=== PATIENT | female | born 1930 | race Hispanic/Latino ===

== ENCOUNTER 2018-02-16 14:06 | Inpatient (IN) | payer OTHER, MEDICARE ==
[2018-02-16 15:29] LABS: APPEARANCE,URINE Cloudy (CLEAR); BILIRUBIN,URINE Small (NEGATIVE); COLOR,URINE Dark Yellow (YELLOW); GLUCOSE, URINE (UA) Negative (NEGATIVE); KETONES,URINE Trace mg/dL (NEGATIVE); LEUKOCYTE ESTERASE ,URINE Moderate (NEGATIVE); NITRATE,URINE Negative (NEGATIVE); OCCULT BLOOD,URINE Small (NEGATIVE); PROTEIN,URINE POS 1+ (NEGATIVE)
[2018-02-16] MEDS ORDERED: SODIUM CHLORIDE 0.9% 1000ML 1,000 ML IV ONE ×2 (15:31→18:21)
[2018-02-16] MEDS ORDERED: CEFTRIAXONE SODIUM 2 GM VIAL ONE (15:32)
[2018-02-16] MEDS ORDERED: IPRATROPIUM/ALBUTEROL SULFATE 3 ML SOLUTION IH ONE (15:35)
[2018-02-16 15:37] LABS: BASOPHILS % (AUTO) 0.4 % (0.0-5.0); EOSINOPHILS % (AUTO) 0.2 % (0.0-8.0); HEMATOCRIT 44.9 % (36-48); MEAN CORPUSCULAR HEMOGLOBIN 31.6 pg (27.0-33.0); MEAN CORPUSCULAR HGB CONC 33.2 g/dL (32.0-36.0); MEAN CORPUSCULAR VOLUME 95.3 fL (79-99); MONOCYTES % (AUTO) 7.2 % (3.0-13.0); NEUTROPHILS % (AUTO) 64.2 % (40.0-77.0); NUCLEATED RED BLOOD CELLS 0.1 % (0.0-0.19); PLATELET COUNT (AUTO) 108 K/uL (130-400); RED CELL DISTRIBUTION WIDTH 14.9 % (11.0-15.5); WHITE BLOOD COUNT (AUTO) 2.4 K/uL (4.8-10.8)
[2018-02-16 15:42] LABS: BACTERIA,URINE Moderate /HPF (None Seen); RBC,URINE 0-1 /HPF (0-1); RENAL EPITHELIAL CELLS,URINE Rare /HPF (None Seen); TRANSITIONAL EPI CELLS,URINE Few /HPF (None Seen)
[2018-02-16 15:52] LABS: INR 0.93 (0.85-1.15); PARTIAL THROMBOPLASTIN TIME 31.3 SEC (26.3-35.5); PROTHROMBIN TIME 9.8 SEC (9.6-11.6)
[2018-02-16 16:01] LABS: LYMPHOCYTES % (MANUAL) 26 % (22-44); MONOCYTES % (MANUAL) 8 % (2-9); REACTIVE LYMPHOCYTES 4 % (0-0); SEGMENTED NEUTROPHILS % 62 % (40-70)
[2018-02-16 16:02] LABS: PLATELET MORPHOLOGY COMMENT ADEQUATE
[2018-02-16 16:10] LABS: CARBON DIOXIDE 27 mmol/L (21-32); CHLORIDE 105 mmol/L (101-111); CREATININE 1.3 mg/dL (0.5-1.5); GLOMERULAR FILTR. RATE CALC 41 mL/min (>60); GLUCOSE,RANDOM 97 mg/dL (70-105); POTASSIUM 3.9 mmol/L (3.5-5.1); SODIUM SERUM 139 mmol/L (136-145); UREA NITROGEN, BLOOD 18 mg/dL (7-18)
[2018-02-16 16:44] LABS: ALANINE AMINOTRANSFERASE 22 U/L (12-78); ALBUMIN 3.1 g/dL (3.5-5.0); ASPARTATE AMINOTRANSFERASE 36 U/L (10-37); BILIRUBIN,TOTAL 0.4 mg/dL (0.2-1.0); CREATINE KINASE MB 1.7 ng/mL (0.5-3.6); CREATINE KINASE, TOTAL 235 U/L (21-232); MYOGLOBIN 314 ng/mL (10-92); TOTAL PROTEIN, SERUM 6.4 g/dL (6.0-8.3); TROPONIN I < 0.04 ng/mL (0.00-0.06)
[2018-02-16] MEDS: OSELTAMIVIR PHOSPHATE 75 MG CAP PO SCH (21:00)
[2018-02-16] MEDS ORDERED: SODIUM CHLORIDE 0.9% 1000ML 1,000 ML IV SCH (21:15)
[2018-02-16] MEDS: IPRATROPIUM/ALBUTEROL SULFATE 3 ML SOLUTION IH SCH (21:41)
[2018-02-16] MEDS ORDERED: OSELTAMIVIR PHOSPHATE 75 MG CAP ONE (21:46)
[2018-02-17] VITALS: BP 125/64
[2018-02-17] MEDS: ENOXAPARIN SODIUM 30 MG/0.3 ML SQ SCH ×3 (00:55→20:08)
[2018-02-17] MEDS: IPRATROPIUM/ALBUTEROL SULFATE 3 ML SOLUTION IH SCH ×6 (01:22→22:11)
[2018-02-17] MEDS ORDERED: MECL-111 PO (02:44)
[2018-02-17] MEDS ORDERED: ESOM40CA54 PO (02:44)
[2018-02-17] MEDS ORDERED: ADV250 IH (02:44)
[2018-02-17] MEDS ORDERED: ASPI-555 PO (02:44)
[2018-02-17] MEDS ORDERED: IPRA0.2S54 IH (02:44)
[2018-02-17] MEDS ORDERED: LEVO100T12 PO (02:44)
[2018-02-17] MEDS ORDERED: MONT10TA24 PO (02:44)
[2018-02-17] MEDS ORDERED: BENZ-51 PO (02:44)
[2018-02-17] MEDS ORDERED: SERT50TA12 PO (02:44)
[2018-02-17] MEDS ORDERED: FURO20TA6 PO (02:44)
[2018-02-17] MEDS ORDERED: ATOR10 PO (02:44)
[2018-02-17] MEDS ORDERED: TOPI50TA24 PO (02:44)
[2018-02-17] MEDS ORDERED: NORT10CA2 PO (02:44)
[2018-02-17] MEDS ORDERED: GLYC30DR OP (02:44)
[2018-02-17 04:00] VITALS: BP 129/54
[2018-02-17 04:18] LABS: CREATININE 1.1 mg/dL (0.5-1.5); POTASSIUM 3.1 mmol/L (3.5-5.1)
[2018-02-17 04:21] LABS: HEMATOCRIT 40.4 % (36-48); MEAN CORPUSCULAR HEMOGLOBIN 32.2 pg (27.0-33.0); MEAN CORPUSCULAR HGB CONC 34.1 g/dL (32.0-36.0); MEAN CORPUSCULAR VOLUME 94.6 fL (79-99); NUCLEATED RED BLOOD CELLS 0.1 % (0.0-0.19); PLATELET COUNT (AUTO) 97 K/uL (130-400); RED BLOOD CELL COUNT(AUTO) 4.27 MIL/uL (4.00-5.50); RED CELL DISTRIBUTION WIDTH 14.9 % (11.0-15.5); WHITE BLOOD COUNT (AUTO) 2.2 K/uL (4.8-10.8)
[2018-02-17] MEDS ORDERED: LIDOCAINE HCL-MPF 1% 2ML VIAL IVP PRN (06:00)
[2018-02-17] MEDS ORDERED: POTASSIUM CHLORIDE 20MEQ/100ML 100 ML IV PRN (06:00)
[2018-02-17] MEDS ORDERED: POTASSIUM CHLORIDE 10% ELIXIR 20 MEQ/15 ML UDCUP PO PRN (06:00)
[2018-02-17 08:00] VITALS: BP 111/57
[2018-02-17] MEDS: FAMOTIDINE 20MG TAB 20 MG TAB PO SCH ×2 (08:04→20:08)
[2018-02-17] MEDS: POTASSIUM CHLORIDE 20 MEQ ERTAB PO PRN ×2 (08:05→14:29)
[2018-02-17] MEDS: OSELTAMIVIR PHOSPHATE 75 MG CAP PO SCH ×2 (08:05→20:08)
[2018-02-17] MEDS: ACETAMINOPHEN 325 MG TAB PO PRN (08:06)
[2018-02-17] MEDS ORDERED: GLYCERIN OP SCH (09:00)
[2018-02-17] MEDS ORDERED: PROPYLENE GLYCOL OP SCH (09:00)
[2018-02-17] MEDS ORDERED: IPRATROPIUM 0.5 MG/2.5 ML INH IH PRN (10:00)
[2018-02-17] MEDS ORDERED: BENZONATATE 100 MG CAPSULE PO PRN (10:00)
[2018-02-17] MEDS ORDERED: MECLIZINE HCL 25 MG TABLET PO PRN (10:00)
[2018-02-17] MEDS ORDERED: TRAMADOL HCL 50 MG TABLET PO PRN (10:15)
[2018-02-17 11:00] VITALS: BP 116/53
[2018-02-17] MEDS: CEFTRIAXONE SODIUM 2 GM VIAL IVP SCH (14:24)
[2018-02-17 16:00] VITALS: BP 145/73
[2018-02-17] MEDS: BUDESONIDE 0.5 MG/2 ML INH IH SCH (18:54)
[2018-02-17 19:00] VITALS: BP 137/61
[2018-02-17] MEDS: ATORVASTATIN CALCIUM 10 MG TABLET PO SCH (20:08)
[2018-02-17] MEDS: SODIUM CHLORIDE 0.9% 1000ML 1,000 ML IV SCH (20:09)
[2018-02-18] VITALS (7 sets, daily range): BP systolic 126–163; BP diastolic 71–91
[2018-02-18] MEDS: IPRATROPIUM/ALBUTEROL SULFATE 3 ML SOLUTION IH SCH ×5 (01:48→23:49)
[2018-02-18 04:00] LABS: HEMATOCRIT 41.6 % (36-48); MEAN CORPUSCULAR HEMOGLOBIN 31.5 pg (27.0-33.0); MEAN CORPUSCULAR HGB CONC 33.1 g/dL (32.0-36.0); NUCLEATED RED BLOOD CELLS 0.2 % (0.0-0.19); PLATELET COUNT (AUTO) 96 K/uL (130-400); RED BLOOD CELL COUNT(AUTO) 4.37 MIL/uL (4.00-5.50); RED CELL DISTRIBUTION WIDTH 14.9 % (11.0-15.5); WHITE BLOOD COUNT (AUTO) 2.4 K/uL (4.8-10.8)
[2018-02-18 04:16] LABS: CREATININE 0.9 mg/dL (0.5-1.5); MAGNESIUM 1.7 mg/dL (1.80-2.40); POTASSIUM 3.3 mmol/L (3.5-5.1)
[2018-02-18 05:37] LABS: BAND NEUTROPHILS % (MANUAL) 14 % (0-2); BASOPHILS % (MANUAL) 2 % (0-2); EOSINOPHILS % (MANUAL) 2 % (1-6); LYMPHOCYTES % (MANUAL) 42 % (22-44); MAN.DIFF COMMENT-IMPRESSION MANUAL DIF; MONOCYTES % (MANUAL) 4 % (2-9); REACTIVE LYMPHOCYTES 4 % (0-0); SEGMENTED NEUTROPHILS % 32 % (40-70)
[2018-02-18 05:38] LABS: PLATELET MORPHOLOGY COMMENT DECREASED
[2018-02-18] MEDS: POTASSIUM CHLORIDE 20 MEQ ERTAB PO PRN ×2 (05:49→10:14)
[2018-02-18] MEDS: BUDESONIDE 0.5 MG/2 ML INH IH SCH ×2 (06:36→19:23)
[2018-02-18] MEDS: LEVOTHYROXINE 100 MCG TABLET PO SCH (07:10)
[2018-02-18] MEDS: NORTRIPTYLINE HCL 10 MG PO SCH (09:00)
[2018-02-18] MEDS ORDERED: FUROSEMIDE 20 MG TABLET PO SCH (09:00)
[2018-02-18] MEDS ORDERED: ONDANSETRON HCL MDV 20ML 2 MG/ML VIAL IVP PRN (09:30)
[2018-02-18] MEDS: PANTOPRAZOLE SODIUM 40 MG TABLET.DR PO SCH (10:12)
[2018-02-18] MEDS: SERTRALINE HCL 50 MG TABLET PO SCH (10:12)
[2018-02-18] MEDS: MONTELUKAST SODIUM 10 MG TAB PO SCH (10:12)
[2018-02-18] MEDS: OSELTAMIVIR PHOSPHATE 75 MG CAP PO SCH ×2 (10:12→21:25)
[2018-02-18] MEDS: TOPIRAMATE 25 MG TABLET PO SCH (10:12)
[2018-02-18] MEDS: FAMOTIDINE 20MG TAB 20 MG TAB PO SCH ×2 (10:12→21:25)
[2018-02-18] MEDS: ASPIRIN 81 MG EC TAB PO SCH (10:12)
[2018-02-18] MEDS: ACETAMINOPHEN 325 MG TAB PO PRN (10:13)
[2018-02-18] MEDS: ENOXAPARIN SODIUM 30 MG/0.3 ML SQ SCH ×2 (10:14→21:26)
[2018-02-18] MEDS: SODIUM CHLORIDE 0.9% 1000ML 1,000 ML IV SCH (10:24)
[2018-02-18] MEDS ORDERED: BENZONATATE 100 MG CAPSULE PO PRN (10:41)
[2018-02-18] MEDS ORDERED: MAGNESIUM 2GM PREMIX 50ML 50 ML IV SCH (10:45)
[2018-02-18] MEDS ORDERED: LACTULOSE 20 GM/30 ML UDCUP PO PRN (11:15)
[2018-02-18] MEDS: CEFTRIAXONE SODIUM 2 GM VIAL IVP SCH (16:26)
[2018-02-18] MEDS: ATORVASTATIN CALCIUM 10 MG TABLET PO SCH (21:25)
[2018-02-19] MEDS: SODIUM CHLORIDE 0.9% 1000ML 1,000 ML IV SCH (01:52)
[2018-02-19 03:00] VITALS: BP 142/66
[2018-02-19 04:03] LABS: CREATININE 0.8 mg/dL (0.5-1.5); MAGNESIUM 1.5 mg/dL (1.80-2.40); POTASSIUM 3.3 mmol/L (3.5-5.1)
[2018-02-19] MEDS: IPRATROPIUM/ALBUTEROL SULFATE 3 ML SOLUTION IH SCH ×2 (06:38→11:31)
[2018-02-19] MEDS: BUDESONIDE 0.5 MG/2 ML INH IH SCH (06:38)
[2018-02-19] MEDS: LEVOTHYROXINE 100 MCG TABLET PO SCH (06:42)
[2018-02-19 08:11] VITALS: BP 135/78
[2018-02-19] MEDS: NORTRIPTYLINE HCL 10 MG PO SCH (09:00)
[2018-02-19 12:00] VITALS: BP 138/68
[2018-02-19] MEDS: SERTRALINE HCL 50 MG TABLET PO SCH (12:30)
[2018-02-19] MEDS: OSELTAMIVIR PHOSPHATE 75 MG CAP PO SCH (12:30)
[2018-02-19] MEDS: PANTOPRAZOLE SODIUM 40 MG TABLET.DR PO SCH (12:30)
[2018-02-19] MEDS: FAMOTIDINE 20MG TAB 20 MG TAB PO SCH (12:30)
[2018-02-19] MEDS: MONTELUKAST SODIUM 10 MG TAB PO SCH (12:31)
[2018-02-19] MEDS: ASPIRIN 81 MG EC TAB PO SCH (12:31)
[2018-02-19] MEDS: TOPIRAMATE 25 MG TABLET PO SCH (12:31)
[2018-02-19] MEDS: ENOXAPARIN SODIUM 30 MG/0.3 ML SQ SCH (12:32)
[2018-02-19] MEDS ORDERED: LEVO500T2 PO (13:38)
[2018-02-19] MEDS ORDERED: OSEL75 PO (13:38)
[2018-02-19 16:00] VITALS: BP 144/68
[2018-02-19] MEDS: ACETAMINOPHEN 325 MG TAB PO PRN (16:07)
[2018-02-19] MEDS: CEFTRIAXONE SODIUM 2 GM VIAL IVP SCH (16:07)
[2018-02-19] MEDS: POTASSIUM CHLORIDE 20 MEQ ERTAB PO PRN (16:07)
== END 2018-02-19 16:40 | disposition home or self-care (01) | DRG 194 ==
LOC: EDH 14:06 → 3BH 20:44
PROVIDERS: ADMIT Family Medicine; ATTEND Family Medicine
DX: J10.1 Influenza due to other identified influenza virus with other respiratory manifestations (principal); N39.0 Urinary tract infection, site not specified; E11.42 Type 2 diabetes mellitus with diabetic polyneuropathy; I48.2 Chronic atrial fibrillation; J44.0 Chronic obstructive pulmonary disease with (acute) lower respiratory infection; J44.1 Chronic obstructive pulmonary disease with (acute) exacerbation; J20.9 Acute bronchitis, unspecified; I50.9 Heart failure, unspecified; I11.0 Hypertensive heart disease with heart failure; E03.9 Hypothyroidism, unspecified; E78.5 Hyperlipidemia, unspecified; F17.210 Nicotine dependence, cigarettes, uncomplicated; F32.9 Major depressive disorder, single episode, unspecified; F41.9 Anxiety disorder, unspecified; B96.89 Other specified bacterial agents as the cause of diseases classified elsewhere; K21.9 Gastro-esophageal reflux disease without esophagitis; M19.90 Unspecified osteoarthritis, unspecified site; F41.1 Generalized anxiety disorder; Z88.0 Allergy status to penicillin; Z98.49 Cataract extraction status, unspecified eye; Z83.3 Family history of diabetes mellitus
CPT/HCPCS: 36415; 71045; 80048; 80053; 81001; 82550; 82553; 83605; 83735; 83874; 84484; 85007; 85025; 85027; 85610; 85730; 87040; 87077; 87088; 87186; 87804; 93005; 94640; 94664; A4218; J0696; J1650; J3475; J7030

== ENCOUNTER → 2019-07-24 | Outpatient (CLI) | payer OTHER, MEDICARE ==
[~2019-07-24] MED LIST: ADV250 IH; ASPI-555 PO; ATOR10 PO; BENZ-51 PO; ESOM40CA54 PO; FURO20TA6 PO; GLYC30DR OP; IPRA0.2S54 IH; LEVO100T12 PO; LEVO500T2 PO; MECL-111 PO; MONT10TA24 PO; NORT10CA2 PO; OSEL75 PO; SERT50TA12 PO; TOPI50TA24 PO
[2019-07-24 14:31] LABS: EOSINOPHILS % (AUTO) 2.7 % (0.0-8.0); HEMATOCRIT 42.6 % (36-48); LYMPHOCYTES % (AUTO) 33.2 % (21.0-51.0); MEAN CORPUSCULAR HEMOGLOBIN 32.3 pg (27.0-33.0); MEAN CORPUSCULAR HGB CONC 33.9 g/dL (32.0-36.0); MEAN CORPUSCULAR VOLUME 95.4 fL (79-99); MONOCYTES % (AUTO) 8.2 % (3.0-13.0); NEUTROPHILS % (AUTO) 54.9 % (40.0-77.0); PLATELET COUNT (AUTO) 163 K/uL (130-400); RED BLOOD CELL COUNT(AUTO) 4.47 MIL/uL (4.00-5.50); RED CELL DISTRIBUTION WIDTH 15.3 % (11.0-15.5); WHITE BLOOD COUNT (AUTO) 4.7 K/uL (4.8-10.8)
[2019-07-24 14:40] LABS: AMYLASE 58 U/L (25-115)
[2019-07-24 14:56] LABS: CRP QUANTITATIVE < 2.00 mg/L (0.00-9.0); LIPASE < 50 U/L (114-286)
[2019-07-24 15:43] LABS: ERYTHROCYTE SEDIMENTATION RATE 20 MM/HR (0-30)
== END | disposition home or self-care (01) ==
LOC: LAB 13:53
PROVIDERS: ATTEND Internal Medicine Gastroenterology
DX: R19.7 Diarrhea, unspecified (principal); R10.13 Epigastric pain
CPT/HCPCS: 36415; 82150; 83690; 85025; 85651; 86140; 87046; 87177; 87507

== ENCOUNTER → 2019-08-01 | Outpatient (CLI) | payer OTHER, MEDICARE | END | disposition home or self-care (01) | LOC: RAH 10:09 | PROVIDERS: ATTEND Internal Medicine Gastroenterology | DX: K83.8 Other specified diseases of biliary tract (principal); K57.10 Diverticulosis of small intestine without perforation or abscess without bleeding; K21.9 Gastro-esophageal reflux disease without esophagitis; K44.9 Diaphragmatic hernia without obstruction or gangrene; Z90.49 Acquired absence of other specified parts of digestive tract; Z87.891 Personal history of nicotine dependence | CPT/HCPCS: 74240; 76700 ==